=== PATIENT | male | born 1960 | race Caucasian/White ===

== ENCOUNTER 2016-08-07 07:48 | Emergency (ER) | payer BC ==
[2016-08-07 07:54] VITALS: BMI 30.1
--- NOTE | 2016-08-07 08:42 | PDOC ---
History of Present Illness - General Chief Complaint: Lightheaded Stated Complaint: DIZZINESS Time Seen by Provider: 08/07/16 08:39 History Source: Patient Exam Limitations: No Limitations - History of Present Illness Initial Comments: 08/07/16 08:42 CHIEF COMPLAINT: Dizziness HISTORY OF PRESENT ILLNESS: This is a 55 year old male with a history of HTN, HLD, and migraines who presents complaining of dizziness. He reports that he was standing at work this morning when he tilted his head back to drink some iced tea and suddenly felt that the room was spinning. He felt nauseated and "off balance". The episode passed after a few seconds. He then walked to his car and experienced the same symptoms again twice, for a few seconds each time. He denies headache, focal weakness, change in speech, change in vision, chest pain, shortness of breath, or any other symptoms. On arrival here, he feels better but is still complaining of some dizziness. V/s on arrival are notable for BP 150/98. PCP is located in [place]. REVIEW OF SYSTEMS: GENERAL/CONSTITUTIONAL: No fever or chills. No weakness. No weight change. HEAD, EYES, EARS, NOSE AND THROAT: No change in vision. No ear pain or discharge. No sore throat. CARDIOVASCULAR: No chest pain or palpitations. RESPIRATORY: No cough, wheezing, or shortness of breath. GASTROINTESTINAL: Nausea. No vomiting, diarrhea or constipation. GENITOURINARY: No dysuria, frequency, or change in urination. MUSCULOSKELETAL: No joint or muscle swelling or pain. No neck or back pain. SKIN: No rash or easy bruising. NEUROLOGIC: See HPI. PSYCHIATRIC: No depression or anxiety. ENDOCRINE: No increased thirst. No abnormal weight change. HEMATOLOGIC/LYMPHATIC: No anemia, easy bleeding, or history of blood clots. ALLERGIC/IMMUNOLOGIC: No hives or skin allergy. No latex allergy. PHYSICAL EXAM: GENERAL: The patient is awake, alert, and fully oriented, in no acute distress. HEAD: Normal with no signs of trauma. ENT: Pupils equal, round and reactive to light, extraocular movements intact, sclera anicteric, conjunctiva clear. Neck supple. LUNGS: Clear to auscultation bilaterally. Normal excursion. No respiratory distress or use of accessory muscles. CV: RRR, S1/S2, no MRG. Cap refill < 2 sec. ABDOMEN: Soft, non-distended, non-tender. EXTREMITIES: Normal range of motion, no edema. NEUROLOGICAL: Normal speech, normal gait. CN II-XII grossly intact. No dysarthria, dysmetria, or dysdiadochokenesis. Lateral nystagmus. PSYCH: Normal mood, normal affect. SKIN: Warm, moist, normal turgor, no rashes or lesions noted. NIH Stroke Scale - Last Known Well Date/Time & Onset Date Last Known Well: 08/07/16 Time Last Known Well: 08:00 - Initial Evaluation Level of consciousness: Alert Ask patient the month and their age: Answers both correctly Ask patient to open & close eyes; make fist and let go: Obeys both correctly Best gaze (horizontal eye movement): Normal Visual field testing: No visual field loss Facial paresis (Show teeth/raise eyebrows/close eyes tight): Normal symmetrical movement Motor Function: Left Arm: Normal Motor Function: Right Arm: Normal (extends arm 90 (or 45) degrees for 10 seconds without drift Motor Function: Left Leg: Normal (extends leg 30 degrees for 5 seconds without drift) Motor Function: Right Leg: Normal (extends leg 30 degrees for 5 seconds without drift) Limb Ataxia: No ataxia Sensory(Use pinprick test arms,legs,trunk,face/side to side): Normal Best language (Describe picture, name items, read sentences): No Aphasia Dysarthria (read several words): Normal articulation Extinction and Inattention: No abnormality - Total Score NIH Stroke Scale Score: 0 Past History - Past Medical History Allergies/Adverse Reactions: Allergies Allergy/AdvReac Type Severity Reaction Status Date / Time No Known Allergies Allergy Verified 08/07/16 10:04 Home Medications: Ambulatory Orders Amlodipine Besylate [Norvasc -] 5 mg PO DAILY 08/07/16 Lisinopril [Prinivil] 10 mg PO DAILY 08/07/16 Meclizine HCl 25 mg PO Q8H PRN #30 tablet 08/07/16 GI Disorders: (Inguinal hernia) HTN: Yes Hypercholesterolemia: Yes - Psycho/Social/Smoking Cessation Hx Suicidal Ideation: No Smoking History: Never smoked Information on smoking cessation initiated: No Hx Alcohol Use: No Drug/Substance Use Hx: No Substance Use Type: None *Physical Exam - Vital Signs Last Vital Signs Temp Pulse Resp BP Pulse Ox 97.5 F L 85 18 150/98 100 08/07/16 07:52 08/07/16 07:52 08/07/16 07:52 08/07/16 07:52 08/07/16 07:52 Heart Score/ECG Review - ECG Intrepretation Comment:: 08/07/16 10:55 NSR with sinus arrhythmia at 79 bpm ED Treatment Course - LABORATORY CBC & Chemistry Diagram: 08/07/16 08:52 08/07/16 08:52 Medical Decision Making - Medical Decision Making 08/07/16 09:34 A/P: 55 year old male with dizziness. NIHSS=0. 1. EKG 2. Cardiac labs 3. HCT 4. Trial of IVF, meclizine for symptomatic relief 5. Re-assess 08/07/16 09:39 HCT: No acute intracranial process Troponin <0.02 08/07/16 10:55 Patient re-evaluated and is no longer dizzy. He is ambulatory with steady gait. *DC/Admit/Observation/Transfer Diagnosis at time of Disposition: Vertigo - Discharge Dispostion Admit: No - Prescriptions Prescriptions: Meclizine HCl 25 mg PO Q8H PRN #30 tablet PRN Reason: Vertigo - Referrals Referrals: Reuben Montes MD [Staff Physician] - 3 days - Patient Instructions Printed Discharge Instructions: DI for Benign Paroxysmal Positional Vertigo Additional Instructions: -Rest and stay well-hydrated -Take Meclizine as prescribed if needed for vertigo symptoms -Follow up with neurology this week (referral enclosed) -Return here for worsening dizziness, weakness in your arms or legs, change in speech, inability to walk well, or any other concerning symptoms - Post Discharge Activity Work/School Note: Back to Work
[2016-08-07] MEDS ORDERED: SODIUM CHLORIDE 1,000 ML IV STA (08:59)
[2016-08-07] MEDS ORDERED: MECLIZINE HCL 25 MG TABLET (FP) PO ONE (08:59)
[2016-08-07 09:01] LABS: BASOPHIL 0.7 % (0-2.0); EOSINOPHIL 1.8 % (0-4.5); MCH 29.2 pg (25.7-33.7); MCHC 32.6 g/dl (32.0-35.9); MEAN CELL VOLUME 89.6 fl (80-96); MEAN PLT VOLUME 8.8 fl (7.5-11.1); NEUTROPHILS 68.6 % (42.8-82.8); PLATELET COUNT 165 K/MM3 (134-434); WHITE BLOOD COUNT 6.8 K/mm3 (4.0-10.0)
[2016-08-07 09:28] LABS: ALBUMIN 3.9 g/dl (3.4-5.0); ALK PHOS 77 U/L (45-117); ANION GAP 11 (8-16); BILIRUBIN,TOTAL 1.2 mg/dL (0.2-1.0); CALCIUM 8.6 mg/dL (8.5-10.1); CO2 28 mmol/L (21-32); COCKROFT - GAULT 115.09; GLUCOSE,RANDOM 85 mg/dL (74-106); SGOT/AST 17 U/L (15-37); SGPT/ALT 33 U/L (12-78); TOT PROT 7.5 g/dl (6.4-8.2)
[2016-08-07 09:30] LABS: TROPONIN I < 0.02 ng/ml (0.00-0.05)
[2016-08-07 10:00] LABS: INR 1.03 (0.82-1.09); PROTHROMBIN TIME (PATIENT) 11.3 SEC (9.98-11.88)
--- NOTE | 2016-08-07 10:25 | EKG ---
Test Reason : Blood Pressure : / mmHG Vent. Rate : 079 BPM Atrial Rate : 079 BPM P-R Int : 158 ms QRS Dur : 092 ms QT Int : 356 ms P-R-T Axes : 041 011 014 degrees QTc Int : 408 ms NORMAL SINUS RHYTHM WITH SINUS ARRHYTHMIA MINIMAL VOLTAGE CRITERIA FOR LVH, MAY BE NORMAL VARIANT BORDERLINE ECG NO PREVIOUS ECGS AVAILABLE Confirmed by SARAHI GARCIAS MD ([id number]) on 08/07/2016 10:25:04 AM Referred By: Confirmed By:SARAHI GARCIAS MD
--- NOTE | 2016-08-07 11:17 | PDOC ---
*Physical Exam - Vital Signs Last Vital Signs Temp Pulse Resp BP Pulse Ox 97.5 F L 85 18 150/98 100 08/07/16 07:52 08/07/16 07:52 08/07/16 07:52 08/07/16 07:52 08/07/16 07:52 ED Treatment Course - LABORATORY CBC & Chemistry Diagram: 08/07/16 08:52 08/07/16 08:52 - ADDITIONAL ORDERS Additional order review: Laboratory Results 08/07/16 08/07/16 08/07/16 08:52 08:52 08:52 INR 1.03 Sodium 141 Potassium 4.1 Chloride 102 Carbon Dioxide 28 Anion Gap 11 BUN 20 H Creatinine 1.0 Creat Clearance w eGFR > 60 Random Glucose 85 Calcium 8.6 Total Bilirubin 1.2 H AST 17 ALT 33 Alkaline Phosphatase 77 Creatine Kinase 176 Creatine Kinase Index 1.2 CK-MB (CK-2) 2.021 CK-MB (CK-2) Rel Index Cancelled Troponin I < 0.02 Total Protein 7.5 Albumin 3.9 08/07/16 08:52 RBC 5.54 MCV 89.6 MCHC 32.6 RDW 14.0 MPV 8.8 Neutrophils % 68.6 Lymphocytes % 21.9 Monocytes % 7.0 Eosinophils % 1.8 Basophils % 0.7 - Medications Given in the ED: ED Medications Discontinued Medications Generic Name Dose Route Start Last Admin Trade Name Freq PRN Reason Stop Dose Admin Sodium Chloride 1,000 mls @ 1,000 mls/hr 08/07/16 08:59 08/07/16 09:50 Normal Saline - IV 08/07/16 09:58 1,000 mls/hr ASDIR STA Administration Meclizine HCl 25 mg 08/07/16 08:59 08/07/16 09:50 Antivert - PO 08/07/16 09:00 25 mg ONCE ONE Administration Medical Decision Making - Medical Decision Making 08/07/16 11:15 55yo male with h/o HTN , child fair allergies, here wtih c/o vertigo like symtpoms. noted when tipping head back, worse wtih turning and movement. no gait instability. no tinnitus, no f/c no mod factors. no weaknes, no change to speech. on exam pt awake, alert. CTAB no wheeze no crackle. heart RRR no m/r/g. abd soft NT. skin warm and dry. nuero. awake alert, CN intact, facies symmetric. finger to nose normal, heel to gonzalez normal. alt hand movement normal. gait normal, neg romberg. pt plan : pt wtih positional vertigo. ct ordered normal. lasb unremarkable. improved wtih meclizine. dc with out pt ENT followup. *DC/Admit/Observation/Transfer Diagnosis at time of Disposition: Vertigo - Prescriptions Prescriptions: Meclizine HCl 25 mg PO Q8H PRN #30 tablet PRN Reason: Vertigo - Referrals Referrals: Reuben Montes MD [Staff Physician] - 3 days - Patient Instructions Printed Discharge Instructions: DI for Benign Paroxysmal Positional Vertigo Additional Instructions: -Rest and stay well-hydrated -Take Meclizine as prescribed if needed for vertigo symptoms -Follow up with neurology this week (referral enclosed) -Return here for worsening dizziness, weakness in your arms or legs, change in speech, inability to walk well, or any other concerning symptoms - Post Discharge Activity Work/School Note: Back to Work
[2016-08-07 11:32] VITALS: BP 133/54; PULSE 60; TEMP 98.2
== END 2016-08-07 11:35 | disposition home or self-care (01) ==
LOC: JER 07:48
DX: H81.10 Benign paroxysmal vertigo, unspecified ear (principal); I10 Essential (primary) hypertension; E78.00 Pure hypercholesterolemia, unspecified; G43.909 Migraine, unspecified, not intractable, without status migrainosus
CPT/HCPCS: 36415; 70450-TC; 71010-TC; 80053; 82550; 82553; 84484; 85025; 85610; 93005; 93010; 99283-25